=== PATIENT | male | born 1950 | race African-American/Black ===

== ENCOUNTER 2023-05-20 14:10 | Outpatient (CLI) | payer MEDICAID, SELFPAY | END 2023-05-20 14:11 | disposition home or self-care (01) | LOC: AMB 05-30 20:08 | PROVIDERS: Visit Provider Family Medicine | DX: A41.9 Sepsis, unspecified organism (principal); E11.65 Type 2 diabetes mellitus with hyperglycemia | CPT/HCPCS: A0425; A0434 ==